=== PATIENT | female | born 1940 | race Caucasian/White ===

== ENCOUNTER 2019-03-29 14:21 | Emergency (ER) | payer MEDICARE ==
--- NOTE | 2019-03-29 15:13 | CR ---
[id number] RAD/RAD Shoulder Right 2V Min EXAM: RAD Shoulder Right 2V Min CLINICAL DATA: TRAUMA COMPARISON: NO PREVIOUS SIMILAR EXAM IS AVAILABLE. FINDINGS: A comminuted at least 4-part impacted right humeral neck fracture is seen. IMPRESSION: COMMINUTED 4 PART IMPACTED RIGHT HUMERAL NECK FRACTURE WITH ARTICULAR INVOLVEMENT Von Zapata MD 03/29/19 0793 Thank you for allowing us to participate in the care of your patient.
[2019-03-29] MEDS: Acetaminophen/oxyCODONE 325-5 MG Tab PO ONE (15:17)
--- NOTE | 2019-03-29 15:20 | CR ---
[id number] RAD/RAD Elbow Right 2V EXAM: SINGLE VIEW RIGHT ELBOW. INDICATION: FALL, LANDING ON RIGHT ELBOW. COMPARISON: None. DISCUSSION: Limited single view of the right elbow does not demonstrate definite acute osseous abnormality. No definite right elbow joint effusion. No significant soft tissue abnormality. IMPRESSION: 1. As above. Joseph Wiseman DO 03/29/19 1519 Thank you for allowing us to participate in the care of your patient.
--- NOTE | 2019-03-29 15:26 | EDM.PDOC ---
ED HPI GENERAL MEDICAL PROBLEM - General Stated Complaint: FELL Time Seen by Provider: 03/29/19 14:36 Source of Information: Reports: Patient, Family History Limitations: Reports: No Limitations - History of Present Illness Onset: Today Location: Reports: Upper Extremity, Right Quality: Reports: Ache Severity: Moderate Improves with: Reports: Cold Therapy Worsens with: Reports: None - Related Data Allergies Allergy/AdvReac Type Severity Reaction Status Date / Time No Known Allergies Allergy Verified 03/29/19 14:42 Home Meds: Home Meds Aspirin [Halfprin] 81 mg PO DAILY 03/29/19 [History] Lisinopril/Hydrochlorothiazide [Lisinopril-HCTZ 10-12.5 MG] 1 tab PO BEDTIME [History] Lovastatin 20 mg PO BEDTIME 03/29/19 [History] ED ROS GENERAL - Review of Systems Review Of Systems: See Below Constitutional: Reports: No Symptoms HEENT: Reports: No Symptoms Respiratory: Reports: No Symptoms Cardiovascular: Reports: No Symptoms Endocrine: Reports: No Symptoms GI/Abdominal: Reports: No Symptoms Musculoskeletal: Reports: Shoulder Pain Skin: Reports: No Symptoms Neurological: Reports: No Symptoms ED EXAM, GENERAL - Physical Exam Exam: See Below Free Text/Narrative:: Pt s/p fall at home over large dog, pt was found on the ground no loc, c/o right shoulder pain . X ray noted humeral neck fracture. Discussed with Arnoldo Nance Orthopedist at [facility] pt placed in sling, pain control, follow up with him in clinic next week. Call his office for appointment. Exam Limited By: No Limitations General Appearance: Alert, WD/WN Eye Exam: Bilateral Eye: PERRL Nose: Other (bleeding from left nare s/p fall ) Head: Atraumatic, Normocephalic, Other (fall no head trauma ) Neck: Normal Inspection Respiratory/Chest: No Respiratory Distress Extremities: Other (pain right shoulder at humeral neck) Departure - Departure Time of Disposition: 15:31 Disposition: Home, Self-Care 01 Clinical Impression: Fracture of neck of humerus - Discharge Information Instructions: Humerus Fracture Treated With Immobilization, [id number] Referrals: PCP,Not In Area [Primary Care Provider] - Additional Instructions: Contact Dr. Nance Orthopedics office for appointment next week in his clinic. Let the office know per Dr. Nance he would like to see you in his clinic Dr. Nance [facility] [phone]
== END 2019-03-29 15:40 | disposition home or self-care (01) ==
LOC: VM.ED 14:21 → SUPCPDRO 14:21 → VM.ED 15:40
DX: S42.291A Other displaced fracture of upper end of right humerus, initial encounter for closed fracture (principal); R04.0 Epistaxis; Z79.82 Long term (current) use of aspirin; W01.0XXA Fall on same level from slipping, tripping and stumbling without subsequent striking against object, initial encounter; Y92.009 Unspecified place in unspecified non-institutional (private) residence as the place of occurrence of the external cause
CPT/HCPCS: 73030; 73070; 99283; A9270

== ENCOUNTER 2025-03-21 07:42 | Day surgery (SDC) | payer MEDICARE ==
[2025-03-21] MEDS: Lactated Ringers 1,000 ML IV SCH (07:58)
[2025-03-21] MEDS ORDERED: fentaNYL 100 MCG/2 ML SDV ONE (08:32)
[2025-03-21] MEDS ORDERED: Propofol 200 MG/20 ML SDV ONE (08:32)
== END 2025-03-21 10:55 | disposition home or self-care (01) ==
LOC: VM.SDS 07:42
PROVIDERS: ATTEND Family Medicine
DX: D12.0 Benign neoplasm of cecum (principal); D12.3 Benign neoplasm of transverse colon; K57.30 Diverticulosis of large intestine without perforation or abscess without bleeding; K59.09 Other constipation; I10 Essential (primary) hypertension; E78.5 Hyperlipidemia, unspecified; Z80.0 Family history of malignant neoplasm of digestive organs; Z88.8 Allergy status to other drugs, medicaments and biological substances; Z86.0101 Personal history of adenomatous and serrated colon polyps
CPT/HCPCS: 00811; 88305; 99100; J2704; J3010; J7120